=== PATIENT | male | born 1930 | race Caucasian/White ===

== ENCOUNTER 2018-10-10 22:14 | Inpatient (IN) | payer OTHER ==
[~2018-10-10] VITALS: Ht 180.3 cm; Wt 78.0 kg
[2018-10-10 22:16] VITALS: BP_SYST 148
[2018-10-10] MEDS ORDERED: SITA100T11 PO (22:46)
[2018-10-10] MEDS ORDERED: FINA5TAB3 PO (22:46)
[2018-10-10] MEDS ORDERED: MOM PO (22:46)
[2018-10-10] MEDS ORDERED: ONDA4TAB5 PO (22:46)
[2018-10-10] MEDS ORDERED: TAMS-11 PO (22:46)
[2018-10-10] MEDS ORDERED: DOCU-144 PO (22:46)
[2018-10-10] MEDS ORDERED: ACET325T53 PO (22:46)
[2018-10-10] MEDS ORDERED: SSREG SUBCUT (22:46)
[2018-10-10] MEDS ORDERED: INSU100V11 SQ (22:46)
[2018-10-10] MEDS ORDERED: CALC-939 PO (22:46)
[2018-10-10] MEDS ORDERED: ROCPM1 IV (22:46)
[2018-10-10] MEDS ORDERED: GLIP5TAB13 PO (22:46)
[2018-10-10] MEDS ORDERED: ACET-2165 PO (22:46)
[2018-10-10] MEDS ORDERED: FLUC200T PO (22:46)
[2018-10-10] MEDS ORDERED: VANC750F IV (22:46)
[2018-10-10] MEDS ORDERED: FLEETMO RC (22:46)
[2018-10-10] MEDS ORDERED: HYDR-4272 PO (22:46)
--- NOTE | 2018-10-10 22:47 | NUR ---
Medication reconciliation completed with information provided by facility. Any prior medication reconciliation on file was reviewed and corrected.
--- NOTE | 2018-10-10 22:51 | NUR ---
Patient to ER bed 04 to gown for evaluation. Side rails up. Report given to JOSE Meng.
--- NOTE | 2018-10-10 23:00 | NUR ---
Patient BIB [facility] aaox4 and able to verbalize his needs. Complaints of right abdominal pain rated 8/10 since 0200. Pain with sob. Denies any chest pain, n/v, chills or fever. Unable to ambulate at this time due to generalized weakness. Davis catheter in place with IV on the left forearm inserted by ambulance.
--- NOTE | 2018-10-10 23:10 | NUR ---
# 20 gauge angiocath placed to left wrist. Use of asceptic technique. Opsite placed over site. Blood return noted. Blood for lab drawn from site. Flushed with 10 cc of normal saline. No evidence of infiltration noted. Patient tolerated well.
[2018-10-10] MEDS ORDERED: NACL 0.9% 1,000 ML IV ONE (23:12)
[2018-10-10] MEDS ORDERED: KETOROLAC TROMETHAMINE 30 MG VIAL IVP ONE (23:15)
[2018-10-10 23:48] LABS: BASOPHILS % (AUTO) 0.3 % (0.0-2.0); EOSINOPHILS # (AUTO) 0.1 K/uL (0.0-0.4); EOSINOPHILS % (AUTO) 0.6 % (0.0-4.0); HEMATOCRIT 38.9 % (36-54); HEMOGLOBIN 12.8 g/dL (14.0-18.0); LYMPHOCYTES # (AUTO) 2.6 K/uL (1.0-5.5); MEAN CORPUSCULAR HEMOGLOBIN 28 pg (27-31); MEAN CORPUSCULAR HGB CONC 33 % (32-36); MEAN CORPUSCULAR VOLUME 84 fL (79.0-98.0); MONOCYTES # (AUTO) 0.4 K/uL (0.0-1.0); MONOCYTES % (AUTO) 2.3 % (1.7-9.3); NEUTROPHILS % (AUTO) 80.8 % (40.0-70.0); PLATELET COUNT (AUTO) 167 K/uL (130-430); RED BLOOD CELL COUNT(AUTO) 4.63 MIL/uL (4.2-6.2); RED CELL DISTRIBUTION WIDTH 16.9 % (9.0-15.0); WHITE BLOOD COUNT (AUTO) 16.1 K/uL (4.8-10.8)
[2018-10-10 23:55] LABS: ANION GAP 10 (5-15); CALCIUM 9.8 mg/dL (8.4-11.0); CHLORIDE 103 mmol/L (98-107); CREATININE 1.58 mg/dL (0.55-1.30); GLUCOSE 187 mg/dL (70-99); SODIUM SERUM 136 mmol/L (136-145); UREA NITROGEN, BLOOD 41 mg/dL (8-21)
[2018-10-10 23:59] LABS: ALANINE AMINOTRANSFERASE 23 U/L (12-78); ALBUMIN 2.2 g/dL (3.4-4.8); ASPARTATE AMINOTRANSFERASE 11 U/L (10-37); TOTAL BILIRUBIN 0.4 mg/dL (0.0-1.0)
[2018-10-11 00:10] LABS: PROTHROMBIN TIME 10.4 SECS (9.5-12.5)
[2018-10-11 01:50] LABS: BILIRUBIN,URINE NEGATIVE (NEGATIVE); CLARITY/URINE CLEAR (CLEAR); COLOR,URINE YELLOW (YELLOW); GLUCOSE,URINE 2+ (NEGATIVE); KETONES,URINE NEGATIVE (NEGATIVE); LEUKOCYTE ESTERASE ,URINE 1+ (NEGATIVE); NITRITE, URINE NEGATIVE (NEGATIVE); PROTEIN URINE TRACE (NEGATIVE); UROBILINOGEN,URINE 0.2 (0.2-1.0)
[2018-10-11 01:53] LABS: BLOOD, URINE TRACE (NEGATIVE)
[2018-10-11 02:15] LABS: BACTERIA,URINE FEW /HPF (None Seen); WBC,URINE 20-50 /HPF (0-3)
[2018-10-11] MEDS ORDERED: LEVOFLOXACIN 500 MG/D5W 100 ML IV ONE (03:15)
[2018-10-11] MEDS ORDERED: cefTRIAXone 1 GM IVPB PREMIX 50 ML IV ONE (03:15)
[2018-10-11] MEDS ORDERED: ACETAMINOPHEN 325 MG TABLET PO PRN ×2 (03:30→13:30)
[2018-10-11] MEDS ORDERED: NACL 0.9% 1,000 ML IV ONE (03:30)
--- NOTE | 2018-10-11 04:05 | NUR ---
Patient will be admitted to care of Dr Arnold. Admitted to Tele unit. Will go to room 106A. Belongings list completed. Summary report printed. Report will be given at bedside.
--- NOTE | 2018-10-11 04:12 | NUR ---
ADMISSION NOTE Received patient from ER via miri, received report from BUD GARCIA. Patient admitted with diagnosis of SEPSIS. Patient oriented to hospital routine, call light, toileting and safety-patient verbalized understanding.
[2018-10-11 04:25] VITALS: BP_SYST 111
--- NOTE | 2018-10-11 04:54 | NUR ---
ADMISSION PHYSICAL ASSESSMENT NOTES; took over care from nurse Campos, admitted from ER for rt. upper quadrant abdominal pain with diagnosis of Sepsis. pt. awake, alert oriented but hard of hearing. oriented to room and use of call light. IV on left hand/wrist. on room air, denies any shortness of breath nor chest pain, on sinus rhythm with PAC's, moves all extremities, noted some swelling on both legs appears more on rt. side. skin cool to touch ans some discoloration on his feet. braswell cath to OSD.call light within reach. safety measures observed, bed alarm on, side rails up.
--- NOTE | 2018-10-11 05:30 | NUR ---
NOTES; pressure sore n sacral area noted with discoloration, non blanchable, picture taken, cleanse with soap and water, kept dry and applied Z guard and also on groin area, braswell care done. sequentials on both lower extremities. IV NS @ 100 cc/hr.
--- NOTE | 2018-10-11 07:13 | NUR ---
Nutrition Update Lincoln Scale 14 noted. Pt admitted for Sepsis Diet: mechanical soft diet BMI: 24.1 kg/m2 RD to follow per nutrition care standards.
[2018-10-11 08:00] VITALS: BP_SYST 131
--- NOTE | 2018-10-11 08:00 | NUR ---
AM NOTES IN BED, AWAKE, ALERT. DENIES ANY CHEST PAIN OR DISCOMFORT AT THIS TIME. NO DISTRESS NOTED. IV OF NS RUNNING AT THIS TIME. ENCINAS CATH DRAINING YELLOW URINE. SAFETY PRECAUTION OBSERVED. CALL LIGHT WIHTIN REACH. ENC. TO CALL FOR HELP NEEDED.
--- NOTE | 2018-10-11 10:27 | NUR ---
Notes- Resting in bed, no complaints. Enc. to call for help as needed. will monitor.
[2018-10-11 13:01] VITALS: BP_SYST 119
--- NOTE | 2018-10-11 13:14 | NUR ---
DC Planning: Requested by dr. Howell to change PCP , so that he can follow his pt starting 10/12/18. Dr. Arnold will see the pt. today. Dr Arnold made aware.
[2018-10-11] MEDS ORDERED: ACETAMINOPHEN 325 MG TABLET PO SCH (13:30)
[2018-10-11] MEDS ORDERED: ONDANSETRON 4 MG ODT TAB PO PRN (13:30)
[2018-10-11] MEDS ORDERED: HYDROcodone/ACETAMIN 5-325 MG TAB (NORCO/ VICODIN) PO PRN (13:30)
[2018-10-11] MEDS ORDERED: MILK OF MAGNESIA 30 ML UDC PO SCH (13:30)
[2018-10-11] MEDS ORDERED: MINERAL OIL 133 ML ENEMA RC SCH (13:30)
--- NOTE | 2018-10-11 13:30 | NUR ---
Notes patient in bed, awake and alert now. Blood pressure stable now. will continue to monitor.
--- NOTE | 2018-10-11 13:49 | NUR ---
ID consult called: for Dr. Jack, regarding pylophritis w/ perninephric abscess, ordered by Dr. Arnold, spoke with Susan.
--- NOTE | 2018-10-11 14:02 | NUR ---
Uro consult called: for Dr. Flaherty, regarding pylophrits w/ perinephric abscess, ordered by Dr. Arnold, spoke with
--- NOTE | 2018-10-11 14:36 | NUR ---
Cardiac consult called: for Dr. Ruiz, regarding near syncope, ordered by Dr. Arnold, spoke with Sunni.
[2018-10-11 14:53] LABS: ANION GAP 12 (5-15); CALCIUM 8.9 mg/dL (8.4-11.0); CHLORIDE 104 mmol/L (98-107); CREATININE 1.43 mg/dL (0.55-1.30); GLUCOSE 264 mg/dL (70-99); POTASSIUM 4.6 mmol/L (3.5-5.1); SODIUM SERUM 135 mmol/L (136-145); UREA NITROGEN, BLOOD 38 mg/dL (8-21)
--- NOTE | 2018-10-11 15:15 | NUR ---
1319- pt is walking with the walker with the [employer] and he almost passed out. Pt put back to bed. Pt is clammy. blood pressure is 88/56. o2 sat 70% in room air. Called rapid response. Dr. Arnold at bedside and assess patient. NS bolus given as ordered. blood sugar is 248. Put patient on o2 2l. o2 sat went up to 91%.
[2018-10-11] MEDS ORDERED: DEXTROSE 50% JECT 50 ML DISP.SYRIN IVP PRN (15:30)
--- NOTE | 2018-10-11 19:10 | NUR ---
OPENING NOTES RECEIVED PATIENT IN BED AAO X4. BREATHING UNLABORED ON 02 2L NC. DENIES ANY PAIN AT THIS TIME. IVF INFUSING ORDERED . IV LINE INTACT. PLAN OF CARE REVIEWED WITH PATIENT. CALL LIGHT WITH IN EASY REACH. BED IN LOWEST LOCKED POSITION. BED ALARM ON.
[2018-10-11 19:35] LABS: HEMOGLOBIN 11.1 g/dL (14.0-18.0); RED BLOOD CELL COUNT(AUTO) 4.06 MIL/uL (4.2-6.2); WHITE BLOOD COUNT (AUTO) 24.1 K/uL (4.8-10.8)
[2018-10-11 19:36] LABS: HEMATOCRIT 35.5 % (36-54); MEAN CORPUSCULAR HEMOGLOBIN 27 pg (27-31); MEAN CORPUSCULAR HGB CONC 31 % (32-36); MEAN CORPUSCULAR VOLUME 87 fL (79.0-98.0); PLATELET COUNT (AUTO) 100 K/uL (130-430); RED CELL DISTRIBUTION WIDTH 18.5 % (9.0-15.0)
[2018-10-11 19:38] LABS: BAND % (MANUAL) 7 % (0-6); BASOPHILS % (MANUAL) 0 % (0-2); EOSINOPHILS % (MANUAL) 1 % (0-7); LYMPHOCYTES % (MANUAL) 12 % (20-46); MONOCYTES % (MANUAL) 1 % (0-11)
[2018-10-11 20:00] VITALS: BP_SYST 114
--- NOTE | 2018-10-11 20:00 | NUR ---
CARDIO CONSULT PATIENT SEEN BY DR. FERRER HERE FOR CARDIO CONSULT. NO NEW ORDERS MADE.
[2018-10-11] MEDS ORDERED: LEVOFLOXACIN 500 MG/D5W 100 ML IV SCH (21:00)
[2018-10-11] MEDS: DOCUSATE SODIUM 100 MG CAPSULE PO SCH (21:23)
[2018-10-11] MEDS: INSULIN REGULAR, HUMAN 100 UNITS/ML, 10 ML VIAL (novoLIN R) SUBCUT PRN (21:31)
--- NOTE | 2018-10-11 21:31 | NUR ---
BLOOD SUGAR ROUTINE FINGER STICK SUGAR 387. COVERED WITH 8 UNITS REGULAR INSULIN PER SLIDING SCALE.
--- NOTE | 2018-10-11 21:40 | NUR ---
URO CONSULT PATIENT SEEN BY DR RODRIGUES FOR UROLOGY CONSULT. ORDERED A CT GUIDED DRAINAGE OF PERINEPHRIC ABCESS IN AM.
[2018-10-12 00:21] VITALS: BP_SYST 116
--- NOTE | 2018-10-12 00:30 | NUR ---
ROUNDS PATIENT RESTING IN BED. NO DISTRESS NOTED. VITAL SIGNS STABLE.
[2018-10-12] MEDS: NACL 0.9% 1,000 ML IV SCH ×2 (01:06→13:19)
--- NOTE | 2018-10-12 04:02 | NUR ---
ROUNDS PATIENT RESTING IN BED. EYES CLOSED. BREATHING UNLABORED. IVF INFUSING. ENCINAS CATH DRAINING BY GRAVITY WITH CLEAR YELLOW URINE. CALL LIGHT WITH IN REACH. BED ALARM ON.
[2018-10-12] MEDS ORDERED: LEVOFLOXACIN 250 MG/D5W 50 ML IV SCH (06:00)
--- NOTE | 2018-10-12 06:33 | NUR ---
CLOSING NOTES PATIENT RESTING IN BED. BREATHING UNLABORED ON 02 2L NC. IVF CONTINUOUSLY INFUSING ORDERED WITH IV LINE INTACT. PATIENT NEEDS ATTENDED. CALL LIGHT WITH IN REACH. BED IN LOWEST LOCKED POSITION WITH BED ALARM ON.
[2018-10-12 07:08] LABS: BASOPHILS % (AUTO) 0.1 % (0.0-2.0); EOSINOPHILS # (AUTO) 0.1 K/uL (0.0-0.4); EOSINOPHILS % (AUTO) 1.3 % (0.0-4.0); HEMOGLOBIN 9.4 g/dL (14.0-18.0); LYMPHOCYTES # (AUTO) 1.5 K/uL (1.0-5.5); LYMPHOCYTES % (AUTO) 14.3 % (20.5-51.5); MEAN CORPUSCULAR HEMOGLOBIN 28 pg (27-31); MEAN CORPUSCULAR HGB CONC 32 % (32-36); MEAN CORPUSCULAR VOLUME 85 fL (79.0-98.0); MONOCYTES # (AUTO) 0.6 K/uL (0.0-1.0); MONOCYTES % (AUTO) 5.5 % (1.7-9.3); NEUTROPHILS # (AUTO) 8.5 K/uL (1.8-7.7); NEUTROPHILS % (AUTO) 78.8 % (40.0-70.0); PLATELET COUNT (AUTO) 105 K/uL (130-430); RED BLOOD CELL COUNT(AUTO) 3.39 MIL/uL (4.2-6.2); RED CELL DISTRIBUTION WIDTH 17.8 % (9.0-15.0); WHITE BLOOD COUNT (AUTO) 10.7 K/uL (4.8-10.8)
[2018-10-12 07:14] LABS: INR 1.1 (0.80-1.20); PROTHROMBIN TIME 11.2 SECS (9.5-12.5)
[2018-10-12 07:16] LABS: ANION GAP 4 (5-15); CALCIUM 8.5 mg/dL (8.4-11.0); CHLORIDE 107 mmol/L (98-107); CREATININE 1.34 mg/dL (0.55-1.30); GLUCOSE 138 mg/dL (70-99); POTASSIUM 4.6 mmol/L (3.5-5.1); SODIUM SERUM 134 mmol/L (136-145); UREA NITROGEN, BLOOD 33 mg/dL (8-21)
--- NOTE | 2018-10-12 07:20 | NUR ---
AM NOTES: PATIENT SLEEPING DURING ROUNDS. BEDSIDE REPORT GIVEN BY NIGHT NURSE IGNACIA. CALL LIGHT WITH IN REACH. BED LOCKED AT LOWEST POSITION. BED ALARM ON.ENCINAS IN SITU. CONTINUE TO MONITOR.NOT IN ANY DISTRESS.
[2018-10-12 08:00] VITALS: BP_SYST 115
[2018-10-12] MEDS: DOCUSATE SODIUM 100 MG CAPSULE PO SCH ×3 (09:00→21:25)
[2018-10-12] MEDS: FLUCONAZOLE 200 MG TABLET (DIFLUCAN) PO SCH (09:12)
[2018-10-12] MEDS: CALCIUM CARBONATE/VITAMIN D3 1 TAB TABLET PO SCH (09:12)
[2018-10-12] MEDS: cefTRIAXone 1 GM IVPB PREMIX 50 ML IV SCH (09:13)
[2018-10-12] MEDS: FINASTERIDE 5 MG TABLET (PROSCAR) PO SCH (09:13)
[2018-10-12 11:36] VITALS: BP_SYST 128
--- NOTE | 2018-10-12 11:40 | NUR ---
radiology: to radiology per wheelchair. no distress,maintained npo as ordered.
[2018-10-12] MEDS ORDERED: LIDOCAINE 1%, 20 ML MDV 20 ML ONE (12:07)
[2018-10-12] MEDS: INSULIN REGULAR, HUMAN 100 UNITS/ML, 10 ML VIAL (novoLIN R) SUBCUT PRN ×3 (12:50→21:30)
--- NOTE | 2018-10-12 12:53 | NUR ---
RN ROUNDS: PATIENT BACK FROM RADIOLOGY IN STABLE CONDITION. REGULAR INSULIN 6 UNITS SUBQ GIVEN FOR BLOOD THTKE=960OB/DL PER SLIDING SCALE. NO ADVERSE REACTIONS THIS TIME.
--- NOTE | 2018-10-12 15:08 | NUR ---
RN ROUNDS: PATIENT RESTING. RIGHT QUADRANT DRAINAGE,LEONARD COLOR DISCHARGES. EARLIER SPECIMEN SAMPLE SEND TO LAB BY MARTI CHARGE NURSE.
[2018-10-12 15:34] VITALS: BP_SYST 107
--- NOTE | 2018-10-12 16:40 | NUR ---
Dietitian Recommendations *Recommend Mechanical Soft, CCHO diet w/ Glucerna BID (ONS provides additional 440 kcal, 20 g PRO, 400 ml water) LP, RD Please refer to Nutrition F/U for details.
--- NOTE | 2018-10-12 17:17 | NUR ---
BLOOD SUGAR: BLOOD KBKXN=506HQ/DL, REGULAR INSULIN 4 UNITS SUBQ GIVEN PER SLIDING SCALE. NO ADVERSE REACTION NOTED THIS TIME.
[2018-10-12] MEDS: TAMSULOSIN HCL 0.4 MG CAP PO SCH (18:00)
--- NOTE | 2018-10-12 18:39 | NUR ---
CLOSING NOTES: STABLE. RIGHT QUADRANT DRAINAGE INTACT ,WITH MODERATE AMOUNT LEONARD COLOR DISCHARGES.CALL LIGHT WITH IN REACH. BED LOCKED AT LOWEST POSITION. BED ALARM ON.
--- NOTE | 2018-10-12 19:10 | NUR ---
OPENING NOTES RECEIVED PATIENT IN BED AAO X4. BREATHING UNLABORED ON 02 2L NC. DENIES PAIN AT THIS TIME. IVF INFUSING ORDERED. IV LINE INTACT. ACCORDION DRAIN IN PLACED TO RT LOWER BACK. PLAN OF CARE REVIEWED WITH PATIENT. BED IN LOWEST LOCKED POSITION WITH ALARM ON. CALL LIGHT WITHIN REACH.
[2018-10-12 21:20] VITALS: BP_SYST 132
[2018-10-12] MEDS: metroNIDAZOLE 500 mg/NS 100 ML IV SCH (21:30)
--- NOTE | 2018-10-12 23:03 | NUR ---
MED PASS PATIENT DUE MEDICATION GIVEN AND TOLERATED. NO DISTRESS NOTED. Addendum: 10/12/18 at 2305 by Shazia Justice RN WRONG TIME - DONE AT [id number]
[2018-10-12 23:15] LABS: APPEARANCE,SPUN,BODY FLUID TURBID (CLEAR)
[2018-10-12 23:16] LABS: BODY FLUID COLOR LT YELLOW (LT YELLOW)
[2018-10-12 23:17] LABS: BODY FLUID TOTAL VOLUME 12 mL; EOSINOPHIL, BODY FLUID 2 %; LYMPHOCYTES, BODY FLUID 9 %; MONOCYTES,BODY FLUID 23 %; NEUTROPHIL, BODY FLUID 66 %; RBC, BODY FLUID 571 /uL; WBC, BODY FLUID 181600 /uL
[2018-10-12 23:33] LABS: SOURCE/TYPE ,BODY FLUID OTHER
[2018-10-12 23:34] LABS: BODY FLUID SOURCE/ TYPE OTHER
[2018-10-12 23:40] VITALS: BP_SYST 127
[2018-10-13] MEDS: NACL 0.9% 1,000 ML IV SCH ×2 (00:13→06:19)
--- NOTE | 2018-10-13 01:20 | NUR ---
ROUNDS PATIENT RESTING IN BED. NO DISTRESS NOTED. IVF INFUSING. CALL LIGHT WITH IN REACH. BED ALARM ON.
--- NOTE | 2018-10-13 03:40 | NUR ---
ROUNDS PATIENT CONDITION UNCHANGED. NO DISTRESS NOTED. BED ALARM ON.
--- NOTE | 2018-10-13 06:36 | NUR ---
CLOSING NOTES PATIENT RESTING IN BED. BREATHING CALM ON 02 2L NC. IVF INFUSING ORDERED WITH IV LINE INTACT. RT LOWER BACK ACCORDION DRAIN OUTPUT 20 ML. PATIENT NEEDS ATTENDED. CALL LIGHT WITH IN REACH. BED IN LOWEST LOCKED POSITION WITH ALARM ON.
--- NOTE | 2018-10-13 07:15 | NUR ---
received report at the bedside with luis antonio nurse. aao x 4. has hard of hearing noted. lungs bilaterally clear. abdomen soft and non distended. has iv access on the lt wrist #20 with normal saline at 100cc/hr infusing on well. no sob nor distress noted. watching tv. call lights within reach. has braswell catheter in placed draining yellowish. has rt side lower accordion drain noted. no drainage noted. no pain nor acute distress noted.
[2018-10-13 07:39] VITALS: BP_SYST 111
[2018-10-13 07:56] LABS: ANION GAP 5 (5-15); BASOPHILS % (AUTO) 0.1 % (0.0-2.0); CALCIUM 8.5 mg/dL (8.4-11.0); CHLORIDE 107 mmol/L (98-107); CREATININE 1.25 mg/dL (0.55-1.30); EOSINOPHILS # (AUTO) 0.2 K/uL (0.0-0.4); EOSINOPHILS % (AUTO) 1.7 % (0.0-4.0); GLUCOSE 169 mg/dL (70-99); HEMATOCRIT 29.3 % (36-54); HEMOGLOBIN 9.4 g/dL (14.0-18.0); LYMPHOCYTES # (AUTO) 1.9 K/uL (1.0-5.5); LYMPHOCYTES % (AUTO) 18.9 % (20.5-51.5); MEAN CORPUSCULAR HEMOGLOBIN 28 pg (27-31); MEAN CORPUSCULAR HGB CONC 32 % (32-36); MEAN CORPUSCULAR VOLUME 86 fL (79.0-98.0); MONOCYTES # (AUTO) 0.5 K/uL (0.0-1.0); MONOCYTES % (AUTO) 5.2 % (1.7-9.3); NEUTROPHILS # (AUTO) 7.6 K/uL (1.8-7.7); NEUTROPHILS % (AUTO) 74.1 % (40.0-70.0); PLATELET COUNT (AUTO) 137 K/uL (130-430); POTASSIUM 4.8 mmol/L (3.5-5.1); RED BLOOD CELL COUNT(AUTO) 3.41 MIL/uL (4.2-6.2); RED CELL DISTRIBUTION WIDTH 17.7 % (9.0-15.0); SODIUM SERUM 136 mmol/L (136-145); UREA NITROGEN, BLOOD 26 mg/dL (8-21); WHITE BLOOD COUNT (AUTO) 10.2 K/uL (4.8-10.8)
[2018-10-13] MEDS: FLUCONAZOLE 200 MG TABLET (DIFLUCAN) PO SCH (08:55)
[2018-10-13] MEDS: DOCUSATE SODIUM 100 MG CAPSULE PO SCH ×2 (08:55→20:35)
[2018-10-13] MEDS: FINASTERIDE 5 MG TABLET (PROSCAR) PO SCH (08:55)
[2018-10-13] MEDS: metroNIDAZOLE 500 mg/NS 100 ML IV SCH ×2 (08:55→20:35)
[2018-10-13] MEDS: cefTRIAXone 1 GM IVPB PREMIX 50 ML IV SCH (08:55)
[2018-10-13] MEDS: CALCIUM CARBONATE/VITAMIN D3 1 TAB TABLET PO SCH (08:55)
--- NOTE | 2018-10-13 08:58 | NUR ---
due medication given as ordered. made comfortable.
--- NOTE | 2018-10-13 09:00 | NUR ---
watching tv. no acute distress noted.
--- NOTE | 2018-10-13 09:08 | NUR ---
antibiotic of flagyl and rocephine iv given.
[2018-10-13 10:17] LABS: BODY FLUID GLUCOSE 17 mg/dL
[2018-10-13 10:19] LABS: BODY FLUID TOTAL PROTEIN < 1.0 g/dL
[2018-10-13 12:00] VITALS: BP_SYST 164
[2018-10-13] MEDS: INSULIN REGULAR, HUMAN 100 UNITS/ML, 10 ML VIAL (novoLIN R) SUBCUT PRN ×3 (12:23→20:34)
--- NOTE | 2018-10-13 12:24 | NUR ---
blood sugar 220mg/dl. coverage given as ordered. made comfortable. eating on the chair.
--- NOTE | 2018-10-13 14:00 | NUR ---
while sitting on the chair, patient is resting and eyes closed. no pain nor distress noted.
--- NOTE | 2018-10-13 16:00 | NUR ---
assisted from the chair to the bed. verbalized feels better after sitting in a while in the chair.
[2018-10-13 16:01] VITALS: BP_SYST 167
--- NOTE | 2018-10-13 17:19 | NUR ---
latest bs is 251mg/dl. coverage given. made comfortable.
[2018-10-13] MEDS: TAMSULOSIN HCL 0.4 MG CAP PO SCH (18:00)
--- NOTE | 2018-10-13 18:00 | NUR ---
asleep at this time. stable no pain
[2018-10-13 19:00] VITALS: BP_SYST 120
--- NOTE | 2018-10-13 19:00 | NUR ---
change of shift.pt.presents quiescent affect;calm,alert.pt.presents drain;rt.flank:yane;rn demonstrated the drain pt.presents braswell catheter.pt.presents iv fluids;infusing.pt.presents scd's stockings.general status stable.respiratory statu stableo2 therapy:administering o2@2l/min via nasal cannulae.call light/telephone w/in the reach of the pt.
--- NOTE | 2018-10-13 19:22 | NUR ---
endorsed to incoming nurse Collin GARCIA
[2018-10-13 20:00] VITALS: BP_SYST 120
--- NOTE | 2018-10-13 20:00 | NUR ---
pt.assessed.v/s assessed;values w/in normal limits.pt.presents no c/o pain,nausea.i have apprised the pt.that snacks/beverages are available w/in the shift.no requested presented@this hour.drain assessed;patent.braswell catheter assessed;patent;urine content present.iv fluids infusing.general status stable.respiratory status stable:o2-sat%=98%.pt.repositioned.call light/telephone w/in the reach of the pt.
--- NOTE | 2018-10-13 20:30 | NUR ---
i have assed the blood glucose;;value:256mg/dl.review of the slidng scale.re;coverage;insulin.
--- NOTE | 2018-10-13 21:00 | NUR ---
2100p medciations administered.i inquired if the pt.presents requests.pt.stated no ,he is fine.no c/o pain,nausea. Addendum: 10/13/18 at 2210 by Collin Mcarthur RN i have administered insulin;regular:4-units.
--- NOTE | 2018-10-13 22:00 | NUR ---
pt.assessed.pt.presents quiescent affect;calm,viewing tv programming.no requests presented@this hour. i have assessed the drain:rt.flank;patent.i have assessed the braswell catheter;patent;urine content present. iv fluids infusing.general status stable.respiratory status stable.pt.repositioned.mario light/telephone placed w.in the reach of the pt.
--- NOTE | 2018-10-14 00:10 | NUR ---
pt.assessed.v/s assessed.values w/in normal limits.pt.presents quiescent affect;calm,somnolent.i have assessed the drain:patent;drainage present.i have assessed the braswell catheter;patent;urine content present.i have assessed the iv fluids access;patent;iv fluids infusing.general status stable.respiratory status stable.no c/o pain,nausea.pt. repositioned.call light/telephone placed w/in the reach of the pt.
[2018-10-14 01:01] VITALS: BP_SYST 132
[2018-10-14] MEDS: NACL 0.9% 1,000 ML IV SCH ×3 (01:24→11:04)
--- NOTE | 2018-10-14 02:00 | NUR ---
pt.assessed.pt.presents quiescent affect;calm,somnolent.i have assessed the drain:patent;drainage fluid present,i have assessed the braswell catheter;patent.urine content present.pt.assessed for cleanliness.pt.repositioned.iv fluids infusing.general status stable. respiratory status stable.call light/telephone placed w/in the reach of the pt.
--- NOTE | 2018-10-14 04:00 | NUR ---
pt.assessed.pt.assessed for cleanliness.pt.presents no c/o pain,nausea.i have assessed the braswell catheter;patent;urine content presents.i have asses the drain:rt.flank;patent;drainage;scant,present.iv access assessed.general status stable.respiratory status stable.pt.repositioned.call light/telephone placed w/in the reach of the pt.
--- NOTE | 2018-10-14 06:20 | NUR ---
pt.assessed pt.assessed for cleanliness.pt.presents quiescent affect;calm,somnolent.i have assessed the blood glucose;value;160mg/dl.i have administered 2-units;regular insulin per sliding scale parameters.no c/o pain,nausea. 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 Addendum: 10/14/18 at 0637 by Collin Mcarthur RN no insulin administered per the slidng scale parameters.insulin administration coverage begins@201mg/dl.
--- NOTE | 2018-10-14 07:10 | NUR ---
received report from luis antonio Polanco Rn. patient asleep. no pain nor distress noted.
[2018-10-14 07:18] LABS: ANION GAP 9 (5-15); CALCIUM 8.8 mg/dL (8.4-11.0); CHLORIDE 108 mmol/L (98-107); CREATININE 1.31 mg/dL (0.55-1.30); GLUCOSE 158 mg/dL (70-99); POTASSIUM 4.4 mmol/L (3.5-5.1); SODIUM SERUM 139 mmol/L (136-145); UREA NITROGEN, BLOOD 27 mg/dL (8-21)
[2018-10-14 07:28] LABS: BASOPHILS % (AUTO) 0.3 % (0.0-2.0); EOSINOPHILS # (AUTO) 0.2 K/uL (0.0-0.4); EOSINOPHILS % (AUTO) 1.9 % (0.0-4.0); HEMATOCRIT 29.6 % (36-54); HEMOGLOBIN 9.6 g/dL (14.0-18.0); LYMPHOCYTES # (AUTO) 1.5 K/uL (1.0-5.5); LYMPHOCYTES % (AUTO) 16.2 % (20.5-51.5); MEAN CORPUSCULAR HEMOGLOBIN 28 pg (27-31); MEAN CORPUSCULAR HGB CONC 33 % (32-36); MEAN CORPUSCULAR VOLUME 86 fL (79.0-98.0); MONOCYTES # (AUTO) 0.6 K/uL (0.0-1.0); MONOCYTES % (AUTO) 6.3 % (1.7-9.3); NEUTROPHILS # (AUTO) 6.8 K/uL (1.8-7.7); NEUTROPHILS % (AUTO) 75.3 % (40.0-70.0); PLATELET COUNT (AUTO) 154 K/uL (130-430); RED BLOOD CELL COUNT(AUTO) 3.46 MIL/uL (4.2-6.2); RED CELL DISTRIBUTION WIDTH 18.3 % (9.0-15.0); WHITE BLOOD COUNT (AUTO) 9.1 K/uL (4.8-10.8)
--- NOTE | 2018-10-14 08:00 | NUR ---
watching tv. stable respiration is even and unlabored. on 2lnc of oxygen
[2018-10-14 08:26] VITALS: BP_SYST 115
--- NOTE | 2018-10-14 08:42 | NUR ---
patient is stable. vitals signs stable. no pain no acute distress noted.
[2018-10-14] MEDS: metroNIDAZOLE 500 mg/NS 100 ML IV SCH ×2 (09:08→20:13)
[2018-10-14] MEDS: cefTRIAXone 1 GM IVPB PREMIX 50 ML IV SCH (09:08)
[2018-10-14] MEDS: FINASTERIDE 5 MG TABLET (PROSCAR) PO SCH (09:08)
[2018-10-14] MEDS: FLUCONAZOLE 200 MG TABLET (DIFLUCAN) PO SCH (09:09)
[2018-10-14] MEDS: DOCUSATE SODIUM 100 MG CAPSULE PO SCH ×2 (09:09→20:13)
[2018-10-14] MEDS: CALCIUM CARBONATE/VITAMIN D3 1 TAB TABLET PO SCH (09:09)
--- NOTE | 2018-10-14 09:13 | NUR ---
due medication given at this time. no distress noted.
--- NOTE | 2018-10-14 11:00 | NUR ---
notify pt for evaluation as ordered.
[2018-10-14] MEDS: INSULIN REGULAR, HUMAN 100 UNITS/ML, 10 ML VIAL (novoLIN R) SUBCUT PRN ×3 (11:26→20:18)
--- NOTE | 2018-10-14 11:59 | NUR ---
ABLE TO WALK BY THE PT 100 FEET FROM ROOM TO THE HALLWAY.
[2018-10-14 12:02] VITALS: BP_SYST 113
--- NOTE | 2018-10-14 12:20 | NUR ---
eating lunch tray. watching tv. no distress noted.
--- NOTE | 2018-10-14 13:31 | NUR ---
urinary bag changed due to leaking. drainage of clear yellow urine noted and documented.
--- NOTE | 2018-10-14 15:00 | NUR ---
resting quitely no distress nor pain noted.
--- NOTE | 2018-10-14 16:00 | NUR ---
sitting on the chair and watching tv no pain noted.
[2018-10-14 16:02] VITALS: BP_SYST 133
[2018-10-14] MEDS: FLUCONAZOLE 100 mg/ NS 50 ML IV SCH (16:26)
--- NOTE | 2018-10-14 17:50 | NUR ---
latest bs is 229mg/dl. coverage given.
--- NOTE | 2018-10-14 18:30 | NUR ---
eating dinner no pain noted. diflucan iv given as ordered.
--- NOTE | 2018-10-14 19:15 | NUR ---
OPENING NOTE RECEIVED ENDORSEMENT REPORT FROM DAY SHIFT NURSE WILFRIDO AT BEDSIDE. PT IS AOX3, RESTING IN BED COMFORTABLY. CHEST RISE EVEN AND UNLABORED. IV ON LEFT HAND 20G. IV CLEAN, DRY AND INTACT. IVF INFUSING AT ORDERED RATE. SKIN CLEAN AND DRY. HEART MONITOR IN PLACE ORDERED. FC CLEAN, DRY AND INTACT. FC EMPTYING TO GRAVITY. ORIENTED PT TO HOSPITAL ROOM, PT VERBALIZED UNDERSTANDING. PT EDUCATED ON SAFETY, PT INSTRUCTED TO USE CALL LIGHT OR ROOM PHONE TO CALL FOR ASSISTANCE. PT VERBALIZED UNDERSTANDING. SAFETY MEASURES IN PLACE. CALL LIGHT/ROOM PHONE WITHIN REACH, BED IN LOWEST POSITION, BED RAILS UP X2, BED ALARM ON, BED WHEELS LOCKED, BEDSIDE TABLE WITHIN REACH. NO OTHER NEEDS AT THIS TIME. WILL CONTINUE TO MONITOR PT.
--- NOTE | 2018-10-14 19:30 | NUR ---
endorsed to incoming nurse Tamara GARCIA
[2018-10-14] MEDS: TAMSULOSIN HCL 0.4 MG CAP PO SCH (19:35)
[2018-10-14 20:10] VITALS: BP_SYST 150
--- NOTE | 2018-10-14 20:16 | NUR ---
RN ROUNDS PT RESTING IN BED COMFORTABLY. CHEST RISE EVEN AND UNLABORED. PT'S AT BEDSIDE. IVF INFUSING AT ORDERED RATE. PT'S SCHEDULED MEDICATIONS ADMINISTERED ORDERED. BS 248, 2 UN OF REGULAR INSULIN ADMINISTERED PER SLIDING SCALE. PT TOLERATED WELL. SCHEDULED FLAGYL INFUSING AT ORDERED RATE. NO OTHER NEEDS AT THIS TIME. SAFETY MEASURES IN PLACE. WILL CONTINUE TO MONITOR PT.
--- NOTE | 2018-10-14 23:50 | NUR ---
RN ROUNDS PT RESTING IN BED COMFORTABLY WITH EYES CLOSED. CHEST RISE EVEN AND UNLABORED.NO SOB NOTED. NO DISTRESS NOTED. NO NEEDS AT THIS TIME. SAFETY MEASURES IN PLACE. WILL CONTINUE TO MONITOR PT.
[2018-10-15] MEDS: NACL 0.9% 1,000 ML IV SCH ×2 (00:18→08:30)
--- NOTE | 2018-10-15 00:20 | NUR ---
RN ROUNDS PT RESTING IN BED COMFORTABLY. CHEST RISE EVEN AND UNLABORED. NO SOB NOTED. NO DISTRESS NOTED. SCHEDULED FLUIDS ADMINISTERED ORDERED. IVF INFUSING WELL. NO OTHER NEEDS AT THIS TIME. SAFETY MEASURES IN PLACE. WILL CONTINUE TO MONITOR PT.
[2018-10-15 01:03] VITALS: BP_SYST 146
--- NOTE | 2018-10-15 04:21 | NUR ---
RN ROUNDS PT RESTING IN BED COMFORTABLY WITH EYES CLOSED. CHEST RISE EVEN AND UNLABORED. NO S/S OF PAIN NOTED. SAFETY MEASURES IN PLACE. NO OTHER NEEDS AT THIS TIME. WILL CONTINUE TO MONITOR PT.
--- NOTE | 2018-10-15 06:07 | NUR ---
BS 123 NO INSULIN COVERAGE NEEDED
--- NOTE | 2018-10-15 06:25 | NUR ---
RN ROUNDS PT RESTING IN BED COMFORTABLY. CHEST RISE EVEN AND UNLABORED. NO SOB NOTED. NO DISTRESS NOTED. IVF INFUSING WELL. NO OTHER NEEDS AT THIS TIME. SAFETY MEASURES IN PLACE. WILL CONTINUE TO MONITOR PT.
--- NOTE | 2018-10-15 06:48 | NUR ---
CLOSING NOTE PT RESTING IN BED COMFORTABLY. CHEST RISE EVEN AND UNLABORED. NO SOB NOTED. NO DISTRESS NOTED. NO S/S OF PAIN NOTED. NO COMPLAINTS OF PAIN AT THIS TIME. ALL SCHEDULED MEDICATIONS ADMINISTERED ORDERED. ALL NEEDS MET THROUGHOUT SHIFT. ALL SAFETY MEASURES IN PLACE. PT CARE WILL BE ENDORSED TO DAY SHIFT NURSE WILFRIDO AT BEDSIDE.
[2018-10-15 07:09] LABS: BASOPHILS % (AUTO) 0.4 % (0.0-2.0); EOSINOPHILS # (AUTO) 0.2 K/uL (0.0-0.4); HEMATOCRIT 30.5 % (36-54); HEMOGLOBIN 9.7 g/dL (14.0-18.0); LYMPHOCYTES # (AUTO) 1.7 K/uL (1.0-5.5); LYMPHOCYTES % (AUTO) 22.4 % (20.5-51.5); MEAN CORPUSCULAR HEMOGLOBIN 27 pg (27-31); MEAN CORPUSCULAR HGB CONC 32 % (32-36); MEAN CORPUSCULAR VOLUME 86 fL (79.0-98.0); MONOCYTES # (AUTO) 0.5 K/uL (0.0-1.0); MONOCYTES % (AUTO) 7.1 % (1.7-9.3); NEUTROPHILS # (AUTO) 5.3 K/uL (1.8-7.7); NEUTROPHILS % (AUTO) 68.1 % (40.0-70.0); PLATELET COUNT (AUTO) 175 K/uL (130-430); RED BLOOD CELL COUNT(AUTO) 3.55 MIL/uL (4.2-6.2); WHITE BLOOD COUNT (AUTO) 7.7 K/uL (4.8-10.8)
--- NOTE | 2018-10-15 07:20 | NUR ---
received patient in bed sleeping. no acute distress noted.
[2018-10-15 07:31] LABS: ANION GAP 5 (5-15); CALCIUM 8.7 mg/dL (8.4-11.0); CHLORIDE 109 mmol/L (98-107); CREATININE 1.29 mg/dL (0.55-1.30); GLUCOSE 141 mg/dL (70-99); SODIUM SERUM 138 mmol/L (136-145); UREA NITROGEN, BLOOD 26 mg/dL (8-21)
[2018-10-15 07:49] VITALS: BP_SYST 124
--- NOTE | 2018-10-15 08:00 | NUR ---
patient resting. respiration is even and unlabored. lungs bilaterally diminished at the bases. still iv acess with iv fluids of normal saline 100cc/hr infusing on well left hand. abdomen soft and non distended. has rt accordion drain back. no drainage noted. has braswell catheter in placed draining well. clear yellow urine. call lights within reach. instructed to call for assistance.
[2018-10-15] MEDS: cefTRIAXone 1 GM IVPB PREMIX 50 ML IV SCH (08:29)
[2018-10-15] MEDS: DOCUSATE SODIUM 100 MG CAPSULE PO SCH (08:29)
[2018-10-15] MEDS: metroNIDAZOLE 500 mg/NS 100 ML IV SCH (08:29)
[2018-10-15] MEDS: FLUCONAZOLE 100 mg/ NS 50 ML IV SCH (08:29)
[2018-10-15] MEDS: FINASTERIDE 5 MG TABLET (PROSCAR) PO SCH (08:29)
[2018-10-15] MEDS: CALCIUM CARBONATE/VITAMIN D3 1 TAB TABLET PO SCH (08:30)
--- NOTE | 2018-10-15 08:38 | NUR ---
due medication given at this time. watching tv. no pain noted.
--- NOTE | 2018-10-15 09:00 | NUR ---
antibiotic x 3 given as ordered.
--- NOTE | 2018-10-15 10:08 | NUR ---
able to walk with walker from the room to hallway with dyspnea while walking with resting in between. O2Sat 97% 2lnc.
--- NOTE | 2018-10-15 11:04 | NUR ---
Discharge Planning: DCP faxed pt referral to [facility] (f [phone] p [phone]) [facility] accepted pt back to [facility] nurse to nurse [phone], transportation with [facility] ([phone]) 3:00pm P/U. DCP made nurse aware, patient packet taken to nurse station.
[2018-10-15 12:04] VITALS: BP_SYST 123
[2018-10-15 12:09] VITALS: BP_SYST 123
--- NOTE | 2018-10-15 14:30 | NUR ---
report given to Teresa GARCIA at [facility]
--- NOTE | 2018-10-15 14:52 | NUR ---
patient left in stable condition. by [facility]
== END 2018-10-15 14:52 | DRG 871 ==
LOC: SED 22:14 → STU 10-11 03:18
PROVIDERS: ADMIT General Practice; ATTEND General Practice
PROC: 0W9H30Z Drainage of Retroperitoneum with Drainage Device, Percutaneous Approach (ICD-10-PCS; principal; 2018-10-12)
DX: A41.9 Sepsis, unspecified organism (principal); R65.21 Severe sepsis with septic shock; N15.1 Renal and perinephric abscess; N17.0 Acute kidney failure with tubular necrosis; K68.12 Psoas muscle abscess; N13.6 Pyonephrosis; B37.49 Other urogenital candidiasis; E11.22 Type 2 diabetes mellitus with diabetic chronic kidney disease; E11.65 Type 2 diabetes mellitus with hyperglycemia; I08.1 Rheumatic disorders of both mitral and tricuspid valves; I12.9 Hypertensive chronic kidney disease with stage 1 through stage 4 chronic kidney disease, or unspecified chronic kidney disease; I25.10 Atherosclerotic heart disease of native coronary artery without angina pectoris; I27.20 Pulmonary hypertension, unspecified; N18.9 Chronic kidney disease, unspecified; N40.0 Benign prostatic hyperplasia without lower urinary tract symptoms; Z87.440 Personal history of urinary (tract) infections; Z79.899 Other long term (current) drug therapy
CPT/HCPCS: 36415; 71045; 80048; 80053; 81000-TC; 82947-TC; 82962; 83036; 83605; 83735-TC; 83880; 84157-TC; 84484; 85007; 85025; 85027; 85610-TC; 85730-TC; 87040-TC; 87070-TC; 87081; 87086; 87186-TC; 88304; 89051-TC; 89060-TC; 93005; 93306; 96361; 96365; 96375; 97110-GP; 97116-GP; 97530-GP; 99285; C1729; G0378; J0696; J1450; J1815; J1885; J1956; J2001; J3490; J7030; J7042